=== PATIENT | female | born 1995 | race Two or more races ===

== ENCOUNTER 2018-03-17 09:12 | Inpatient (IN) | payer OTHER ==
[2018-03-17 12:14] LABS: BASO % 0.3 % (0-2.0); EOS % 0.8 % (0-4.5); HEMOGLOBIN 11.3 GM/dL (10.7-15.3); LYMPH % 12.8 % (8-40); MCH 27.9 pg (25.7-33.7); MCHC 34.2 g/dl (32.0-36.0); MEAN CELL VOLUME 81.6 fl (80-96); MEAN PLT VOLUME 10.4 fl (7.5-11.1); MONO % 5.2 % (3.8-10.2); NEUT % 80.9 % (42.8-82.8); PLATELET COUNT 217 K/MM3 (134-434); RBC 4.04 M/mm3 (3.60-5.2); RDW 14.8 % (11.6-15.6); WHITE BLOOD COUNT 9.1 K/mm3 (4.0-10.0)
[2018-03-17 12:22] VITALS: BMI 24.7
[2018-03-17] MEDS ORDERED: DINOPROSTONE 10 MG VAGINAL SUPPOSITORY VG ONE (12:30)
[2018-03-17 12:32] LABS: ANION GAP 7 MMOL/L (8-16); BLOOD UREA NITROGEN 9 mg/dL (7-18); CALCIUM 8.7 mg/dL (8.5-10.1); CHLORIDE 103 mmol/L (98-107); CO2 26 mmol/L (21-32); CREATININE 0.6 mg/dL (0.55-1.3); GLUCOSE,RANDOM 71 mg/dL (74-106); POTASSIUM 4.4 mmol/L (3.5-5.1); SODIUM 136 mmol/L (136-145)
[2018-03-17] MEDS ORDERED: DEXTROSE 5%-LACTATED RINGERS 1,000 ML IV SCH ×2 (13:00→17:30)
[2018-03-17 13:33] LABS: INR 0.9 (0.83-1.09); PROTHROMBIN TIME (PATIENT) 10.6 SEC (9.7-13.0)
[2018-03-17 13:36] LABS: ACTIVATED PTT 22.3 SECONDS (25.2-36.5)
[2018-03-17] MEDS ORDERED: TUBERCULIN PPD 5 TU/0.1ML SYRINGE (IN PATIENT USE ONLY) ID ONE (15:00)
--- NOTE | 2018-03-17 15:31 | PN ---
Progress Note (short form) - Note Progress Note: cx 1 cm 70 vx -3 mi, fhr cat 1, irregular contraction, not felt by patient, cervidil risks discussed agreed cervidil inserted
--- NOTE | 2018-03-17 17:16 | HP ---
Past Medical History - Primary Care Physician PCP:: Dewayne Quiles - Admission Chief Complaint: pregnacy 39.2 weeks by date, 38.4 weeksby sono , SGA, for cervidil induction History of Present Illness: 22 yo f edc 03/22/16 by date wihhx of symmetrical IUGR , EFW at 7th percentile , admitted for cervidil induction , cx 1 cm, 70 vx -3 mi, fhr cat 1, irregular contraction , not felt by patient, cervidil risks discussed History Source: Patient Limitations to Obtaining History: No Limitations - Past Medical History ...: 1 ...Para: 0 ...Term: 0 ...: 0 ...Spon : 0 ...Induced : 0 ...Multiple Gestation: 0 ...LMP: 06/15/17 ... Weeks Gestation by Dates: 39.2 ...EDC by Dates: 03/22/18 ...EDC by Sono: 03/27/18 - Past Surgical History Hx Myomectomy: No Hx Transabdominal Cerclage: No - Smoking History Smoking history: Never smoked Have you smoked in the past 12 months: No - Alcohol/Substance Use Hx Alcohol Use: No - Social History Usual Living Arrangement: Yes: With Spouse History of Recent Travel: No Home Medications - Allergies Allergies/Adverse Reactions: Allergies Allergy/AdvReac Type Severity Reaction Status Date / Time No Known Allergies Allergy Verified 03/17/18 09:38 - Home Medications Home Medications: Ambulatory Orders Ferrous Sulfate [Iron] 325 mg PO DAILY 03/17/18 Pnv No.95/Ferrous Fum/Folic AC [ Formula] 1 each PO DAILY 03/17/18 Review of Systems - Review of Systems Constitutional: reports: No Symptoms Eyes: reports: No Symptoms HENT: reports: No Symptoms Neck: reports: No Symptoms Cardiovascular: reports: No Symptoms Gastrointestinal: reports: No Symptoms Genitourinary: reports: No Symptoms Breasts: reports: No Symptoms Reported Musculoskeletal: reports: No Symptoms Integumentary: reports: No Symptoms Neurological: reports: No Symptoms Endocrine: reports: No Symptoms Hematology/Lymphatic: reports: No Symptoms Psychiatric: reports: No Symptoms Physical Exam - Maternity Vital Signs: Vital Signs Temperature 98.5 F 03/17/18 17:00 Pulse Rate 87 03/17/18 17:00 Respiratory Rate 20 03/17/18 17:00 Blood Pressure 130/77 03/17/18 17:00 O2 Sat by Pulse Oximetry (%) Constitutional: Yes: Well Nourished, No Distress, Calm Eyes: Yes: WNL, Conjunctiva Clear, EOM Intact HENT: Yes: WNL, Atraumatic, Normocephalic Neck: Yes: WNL, Supple, Trachea Midline Cardiovascular: Yes: WNL, Regular Rate and Rhythm Breast(s): Yes: WNL - Abdominal Exam/OB Number of Fetuses: Single Presentation: Vertex Regularity: Irregular Intensity: Unaware Monitor Mode: External Heart Rate Location: [facility] Category: I Accelerations: Uniform - Vaginal Exam/OB Vaginal Bleediing: No Speculum Exam: No Dilatation (cm): 1cm Effacement (%): 70 Amniotic Membrane Status: Intact Presentation: Vertex/Position Station: -3 - Physical Exam Musculoskeletal: Yes: WNL Extremities: Yes: WNL Edema: Yes Edema: LLE: Trace, RLE: Trace Deep Tendon Reflex Grade: Normal +2 ...Motor Strength: WNL Psychiatric: Yes: WNL - Labs Lab Results: CBC, BMP 03/17/18 11:50 03/17/18 11:50 Hemorrhage Risk Assessment - Risk Factors Medium Risk Factors: Yes: None High Risk Factors: Yes: None Risk Score: 0 Risk Level: Low Risk Problem List - Problems (1) with 39 completed weeks gestation Code(s): Z3A.39 - 39 WEEKS GESTATION OF Assessment/Plan admit for cervidil induction, rba discussed
[2018-03-17] MEDS ORDERED: PROMETHAZINE HCL 25 MG/1 ML VIAL IVPUSH ONE (17:22)
[2018-03-17] MEDS ORDERED: BUTORPHANOL TARTRATE 1 MG/ML VIAL IVPUSH PRN (17:22)
[2018-03-18] MEDS ORDERED: PROMETHAZINE HCL 25 MG/1 ML VIAL ONE (00:29)
[2018-03-18] MEDS ORDERED: BUTORPHANOL TARTRATE 1 MG/ML VIAL ONE ×2 (00:29)
[2018-03-18] MEDS ORDERED: FENTANYL/BUPIVACAINE/NS/PF - PCEA - 50 ML DISP.SYRIN EP ONE (03:46)
[2018-03-18] MEDS ORDERED: LIDO 2%/EPI 1:200000 PRESRVFRE (20 ML SDVIAL) ONE ×3 (03:47→07:05)
[2018-03-18] MEDS ORDERED: NALOXONE HCL 0.4 MG/ML VIAL IVPUSH PRN (04:13)
[2018-03-18] MEDS ORDERED: FENTANYL/BUPIVACAINE/NS/PF - PCEA - 50 ML DISP.SYRIN EP SCH (04:15)
[2018-03-18] MEDS ORDERED: ELECTROLYTE-148 SOLN 500 ML IV ONE (04:41)
[2018-03-18] MEDS ORDERED: OXYTOCIN 20 UNITS in 0.9% NS 20 UNIT/1,000 ML INFUS.BAG IV ONE ×2 (05:37→08:55)
[2018-03-18] MEDS ORDERED: KETOROLAC TROMETHAMINE 30 MG/1 ML VIAL ONE (07:17)
[2018-03-18] MEDS ORDERED: morphine SULFATE/Preservative Free 0.5 MG/ML (1cc Syringe) ONE ×4 (07:18)
[2018-03-18] MEDS ORDERED: ePHEDrine SULFATE 50 MG/1 ML AMPULE ONE (07:24)
[2018-03-18] MEDS ORDERED: METHYLERGONOVINE MALEATE 0.2 MG/1 ML AMP IM PRN (07:59)
--- NOTE | 2018-03-18 08:03 | OP ---
Operative Note - Note: Operative Date: 03/18/18 Pre-Operative Diagnosis: IUGR / Non reassuring heart rate Operation: Primary Low transverse Findings: SGA / Nuchal cord x 1 Post-Operative Diagnosis: Same as Pre-op Surgeon: Katalina Barton Brake Lining Maker: Peggy Hwang Anesthesia: Epidural Specimens Removed: Placenta Estimated Blood Loss (mls): 500
[2018-03-18] MEDS ORDERED: ONDANSETRON 4 MG/2 ML VIAL IVPUSH PRN (08:10)
[2018-03-18] MEDS: OXYTOCIN 20 UNITS in 0.9% NS 20 UNIT/1,000 ML INFUS.BAG IV SCH (09:15)
[2018-03-18] MEDS: PRENATAL VITAMINS W/ FOLIC ACID TABLET (FP) PO SCH (10:57)
[2018-03-18] MEDS: FERROUS SO4 325 MG TABLET (FP) PO SCH ×2 (10:57→23:07)
[2018-03-18] MEDS: IBUPROFEN 800 MG/8 ML IJ IVPB PRN (18:12)
[2018-03-19] MEDS: IBUPROFEN 800 MG/8 ML IJ IVPB PRN (01:40)
[2018-03-19] MEDS: OXYTOCIN 20 UNITS in 0.9% NS 20 UNIT/1,000 ML INFUS.BAG IV SCH ×2 (05:00→08:36)
[2018-03-19 07:25] LABS: BASO % 0.2 % (0-2.0); EOS % 0.6 % (0-4.5); HEMOGLOBIN 8.8 GM/dL (10.7-15.3); LYMPH % 9.1 % (8-40); MCH 26.1 pg (25.7-33.7); MCHC 31.4 g/dl (32.0-36.0); MEAN CELL VOLUME 83.1 fl (80-96); MEAN PLT VOLUME 9.8 fl (7.5-11.1); MONO % 3.8 % (3.8-10.2); NEUT % 86.3 % (42.8-82.8); PLATELET COUNT 154 K/MM3 (134-434); RBC 3.37 M/mm3 (3.60-5.2); RDW 14.8 % (11.6-15.6); WHITE BLOOD COUNT 14.3 K/mm3 (4.0-10.0)
[2018-03-19] MEDS ORDERED: BISACODYL 10 MG SUPP.RECT RC PRN (07:59)
[2018-03-19] MEDS ORDERED: ACETAMINOPHEN 325 MG TABLET (FP) ONE (09:20)
--- NOTE | 2018-03-19 09:29 | PN ---
Post Progress Note - Subjective Subjective: pt c/o pain presently 4/10, before pain meds scale was 9/10 pt is drowsy from pain meds she did not void urine since oseguera is taken out passing flatus minimal Post Day: 1 Type of Delivery: Primary C/S Vital Signs: Vital Signs Temperature 97.8 F 03/19/18 06:00 Pulse Rate 98 H 03/19/18 06:00 Respiratory Rate 18 03/19/18 06:00 Blood Pressure 110/57 L 03/19/18 06:00 O2 Sat by Pulse Oximetry (%) 99 03/18/18 08:50 Breast Exam: Yes: Soft, Other (plans to BF ). No: Engorged Uterus: Yes: Fundus Firm, Fundus below umbilicus, Non-tender Incision: Yes: Dressing dry and intact. No: Redness, Oozing Abdomen/GI: Yes: Abdomen soft (bs active ), Passing flatus, Tolerating PO ( clear fluids ). No: Abdominal Distention, Tender Lochia: Yes: Rubra Lochia, amount: Small Extremities: Yes: Calves non-tender Perineum: Yes: Intact Activity: Other (pt in bed , not oob yet ) - Labs Labs: CBC WBC 14.3 K/mm3 (4.0-10.0) H 03/19/18 06:30 RBC 3.37 M/mm3 (3.60-5.2) L 03/19/18 06:30 Hgb 8.8 GM/dL (10.7-15.3) L 03/19/18 06:30 Hct 28.0 % (32.4-45.2) L D 03/19/18 06:30 MCV 83.1 fl (80-96) 03/19/18 06:30 MCH 26.1 pg (25.7-33.7) 03/19/18 06:30 MCHC 31.4 g/dl (32.0-36.0) L 03/19/18 06:30 RDW 14.8 % (11.6-15.6) 03/19/18 06:30 Plt Count 154 K/MM3 (134-434) D 03/19/18 06:30 MPV 9.8 fl (7.5-11.1) 03/19/18 06:30 Absolute Neuts (auto) 12.3 K/mm3 (1.5-8.0) H 03/19/18 06:30 Neutrophils % 86.3 % (42.8-82.8) H 03/19/18 06:30 Lymphocytes % 9.1 % (8-40) D 03/19/18 06:30 Monocytes % 3.8 % (3.8-10.2) 03/19/18 06:30 Eosinophils % 0.6 % (0-4.5) 03/19/18 06:30 Basophils % 0.2 % (0-2.0) 03/19/18 06:30 Nucleated RBC % 0 % (0-0) 03/19/18 06:30 Other Findings, Remarks: RS cta urine out put 2600 + 800 ml Problem List - Problems (1) delivery due to maternal disorder, delivered, curr hospitaliz Code(s): O82 - ENCOUNTER FOR DELIVERY WITHOUT INDICATION; O99.89 - OTH DISEASES AND CONDITIONS COMPL PREG/CHLDBRTH (2) Encounter for care after hospital delivery Code(s): Z39.2 - ENCOUNTER FOR ROUTINE FOLLOW-UP (3) Anemia Code(s): D64.9 - ANEMIA, UNSPECIFIED Assessment/Plan 22 yrs s/p primary c/section doing well anemia post op is noted stable hemodynamically. Plan encourage deep breathing, ambulation, po fluids advance diet
[2018-03-19] MEDS: IBUPROFEN 600 MG TABLET (FP) PO PRN ×3 (09:33→22:23)
[2018-03-19] MEDS: PRENATAL VITAMINS W/ FOLIC ACID TABLET (FP) PO SCH (09:34)
[2018-03-19] MEDS: FERROUS SO4 325 MG TABLET (FP) PO SCH ×2 (09:34→21:52)
[2018-03-19] MEDS: ACETAMINOPHEN 325 MG TABLET (FP) PO PRN ×3 (09:38→22:24)
[2018-03-19] MEDS ORDERED: DIPHTH,PERTUSS(ACELL),TET 0.5 ML DISP.SYRIN IM ONE (10:00)
--- NOTE | 2018-03-19 19:34 | PN ---
Progress Note (short form) - Note Progress Note: Anesthesia postop note S/P under spinal anesthesia. Pat seen and examined. VSS. No apparent post anesthesia complications. Signed off.
[2018-03-20] MEDS: ACETAMINOPHEN 325 MG TABLET (FP) PO PRN ×2 (09:01→20:20)
[2018-03-20] MEDS: IBUPROFEN 600 MG TABLET (FP) PO PRN ×2 (09:01→20:21)
[2018-03-20] MEDS: PRENATAL VITAMINS W/ FOLIC ACID TABLET (FP) PO SCH (09:01)
[2018-03-20] MEDS: SIMETHICONE 80 MG TAB.CHEW (FP) PO PRN ×2 (09:01→20:20)
[2018-03-20] MEDS: FERROUS SO4 325 MG TABLET (FP) PO SCH ×2 (09:01→21:23)
--- NOTE | 2018-03-20 09:14 | PN ---
Post Progress Note - Subjective Subjective: No events o/n. Tolerating po. Pain controlled with meds. +flatus Post Day: 22 Type of Delivery: Primary C/S Vital Signs: Vital Signs Temperature 98.8 F 03/19/18 21:00 Pulse Rate 96 H 03/19/18 21:00 Respiratory Rate 18 03/19/18 21:00 Blood Pressure 121/68 03/19/18 21:00 O2 Sat by Pulse Oximetry (%) 99 03/18/18 08:50 Uterus: Yes: Fundus below umbilicus Incision: Yes: Dressing dry and intact Abdomen/GI: Yes: Abdomen soft Lochia: Yes: Rubra Lochia, amount: Small Extremities: Yes: Calves non-tender Perineum: Yes: Intact - Labs Labs: CBC WBC 14.3 K/mm3 (4.0-10.0) H 03/19/18 06:30 RBC 3.37 M/mm3 (3.60-5.2) L 03/19/18 06:30 Hgb 8.8 GM/dL (10.7-15.3) L 03/19/18 06:30 Hct 28.0 % (32.4-45.2) L D 03/19/18 06:30 MCV 83.1 fl (80-96) 03/19/18 06:30 MCH 26.1 pg (25.7-33.7) 03/19/18 06:30 MCHC 31.4 g/dl (32.0-36.0) L 03/19/18 06:30 RDW 14.8 % (11.6-15.6) 03/19/18 06:30 Plt Count 154 K/MM3 (134-434) D 03/19/18 06:30 MPV 9.8 fl (7.5-11.1) 03/19/18 06:30 Absolute Neuts (auto) 12.3 K/mm3 (1.5-8.0) H 03/19/18 06:30 Neutrophils % 86.3 % (42.8-82.8) H 03/19/18 06:30 Lymphocytes % 9.1 % (8-40) D 03/19/18 06:30 Monocytes % 3.8 % (3.8-10.2) 03/19/18 06:30 Eosinophils % 0.6 % (0-4.5) 03/19/18 06:30 Basophils % 0.2 % (0-2.0) 03/19/18 06:30 Nucleated RBC % 0 % (0-0) 03/19/18 06:30 Assessment/Plan 22yo s/p PLTCS, POD#2 Routine care OOB, ambulate Labs reviewed Anticipate d/c to home by POD#4 Ozzie Goddard MD
[2018-03-20] MEDS ORDERED: IBUPROFEN 100 MG/5 ML UNIT DOSE CUPS PO PRN (09:30)
[2018-03-21 06:11] LABS: BASO % 0.3 % (0-2.0); EOS % 1.6 % (0-4.5); HEMATOCRIT 29.2 % (32.4-45.2); HEMOGLOBIN 9.3 GM/dL (10.7-15.3); LYMPH % 11.7 % (8-40); MCH 26.3 pg (25.7-33.7); MCHC 31.8 g/dl (32.0-36.0); MEAN CELL VOLUME 82.6 fl (80-96); MEAN PLT VOLUME 8.4 fl (7.5-11.1); MONO % 4.4 % (3.8-10.2); PLATELET COUNT 213 K/MM3 (134-434); RBC 3.53 M/mm3 (3.60-5.2); WHITE BLOOD COUNT 11.6 K/mm3 (4.0-10.0)
--- NOTE | 2018-03-21 08:35 | DS ---
Physical Exam-PIGS FEET CLEANER Vital Signs: Vital Signs Temperature 99.0 F 03/20/18 20:28 Pulse Rate 110 H 03/20/18 20:28 Respiratory Rate 20 03/20/18 20:28 Blood Pressure 117/70 03/20/18 20:28 O2 Sat by Pulse Oximetry (%) 99 03/18/18 08:50 Constitutional: Yes: Well Nourished, No Distress, Calm Eyes: Yes: WNL, Conjunctiva Clear, EOM Intact HENT: Yes: WNL, Atraumatic, Normocephalic Neck: Yes: WNL, Supple, Trachea Midline Cardiovascular: Yes: WNL, Regular Rate and Rhythm Respiratory: Yes: WNL, Regular, CTA Bilaterally Gastrointestinal: Yes: WNL ...Rectal Exam: Yes: WNL Renal/: Yes: WNL ....Post : Yes: Uterus firm, Uterus non-tender, Slight lochia rubra Breast(s): Yes: WNL Musculoskeletal: Yes: WNL Extremities: Yes: WNL Edema: No Integumentary: Yes: WNL Wound/Incision: Yes: Clean/Dry, Well Approximated, Union Intact Neurological: Yes: WNL, Alert, Oriented ...Motor Strength: WNL Psychiatric: Yes: WNL, Alert, Oriented Labs: CBC, BMP 03/21/18 05:56 03/17/18 11:50 Delivery - Delivery Section: Primary, Low Flap Transverse Type of Anesthesia: Epidural EBL (cc): 500 Delivery, Single - Stages of Labor Date 1st Stage Initiatied: 03/17/18 Time 1st Stage Initiated: 10:00 Date of Delivery: 03/18/18 Time of Delivery: 07:27 Time Placenta Delivered: 07:29 Placenta: Yes: Expressed - Condition of Infant Delineator/Pneumatic Tester Mechanic Present: Yes Name: Brayan Franz Gender: Male Weight: 5 lb 13 oz Total Hours ROM (Hrs/Mins): 4 hours 29 minutes - 1 Minute Total Score: 9 5 Minutes Total Score: 9 - Feeding Plan Initial Plan: Elected not to breastfeed exclusively throughout hospitalization Discharge Summary Reason For Visit: INDUCTION OF LABOR Current Active Problems Anemia (Acute) delivery due to maternal disorder, delivered, curr hospitaliz (Acute) Encounter for care after hospital delivery (Acute) IUGR (intrauterine growth restriction) (Acute) with 39 completed weeks gestation (Acute) Procedures: Principal: primary LST c/s Hospital Course: no complication Condition: Good - Instructions Diet, Activity, Other Instructions: regular diet, no intercourse, follow up [facility] care 1 week, if fever, pain, heavy bleeding call MD Disposition: HOME - Home Medications Comprehensive Discharge Medication List: Ambulatory Orders Ferrous Sulfate [Iron] 325 mg PO DAILY 03/17/18 Pnv No.95/Ferrous Fum/Folic AC [ Formula] 1 each PO DAILY 03/17/18 Ibuprofen [Motrin -] 600 mg PO TID #90 tablet 03/21/18
[2018-03-21] MEDS: PRENATAL VITAMINS W/ FOLIC ACID TABLET (FP) PO SCH ×2 (09:32→09:34)
[2018-03-21] MEDS: FERROUS SO4 325 MG TABLET (FP) PO SCH (09:32)
[2018-03-21 10:15] VITALS: BP 124/73; PULSE 103; TEMP 99.4
--- NOTE | 2018-03-27 19:01 | PATH ---
Surgical Pathology Report Patient Name: SHELL VENTURA [facility]. Rec. #: [id number] /Age/Gender: 1995 (Age: 22) / F Account: [id number] Location: [facility] OBS/HALL COORDINATOR Taken: 03/18/2018 Received: 03/19/2018 Reported: 03/27/2018 Physicians: Elvi Brown M.D. Specimen(s) Received PLACENTA Clinical History , 38.4 weeks gestation, IUGR, nonreassuring heart rate Final Diagnosis PLACENTA: THIRD TRIMESTER PLACENTA. TRIVASCULAR CORD. MEMBRANES WITH NO DIAGNOSTIC ABNORMALITIES. Electronically Signed Deepti Coles M.D. Gross Description The specimen is received fresh labeled placenta and is a 404 gram, 17.5 x 15.5 x 2.2 cm. placenta with attached membranes and umbilical cord. The attached membranes are liu, translucent with focal opacities and insert marginally. The umbilical cord measures 24cm in length and averages 1cm. in diameter. The cord inserts eccentrically, 5.5 cm. to the nearest margin. No true knots or strictures are identified. Cut surface of the umbilical cord reveals 3 vessels. The surface is posey-blue with minimal fibrin deposition and appropriate caliber vessels. The maternal surface is red-brown with focal defects. Sectioning reveals no lesions. Skip Pit Worker sections are submitted in three cassettes as follows: 1- membrane rolls and umbilical cord; 2-3- full thickness sections of placenta. /03/25/2018 saudi03/25/2018
== END 2018-03-21 12:00 | disposition home or self-care (01) | DRG 540 ==
LOC: JDEL 09:12 → JLDR 11:15 → J3W 03-18 09:50
PROVIDERS: ADMIT Obstetrics & Gynecology; ATTEND Obstetrics & Gynecology
PROC: 3E0P7VZ Introduction of Hormone into Female Reproductive, Via Natural or Artificial Opening (ICD-10-PCS; 2018-03-17)
PROC: 10D00Z1 Extraction of Products of Conception, Low, Open Approach (ICD-10-PCS; principal; 2018-03-18)
DX: O36.5930 Maternal care for other known or suspected poor fetal growth, third trimester, not applicable or unspecified (principal); O76 Abnormality in fetal heart rate and rhythm complicating labor and delivery; O69.81X0 Labor and delivery complicated by cord around neck, without compression, not applicable or unspecified; O99.02 Anemia complicating childbirth; D64.9 Anemia, unspecified; Z3A.39 39 weeks gestation of pregnancy; Z37.0 Single live birth
CPT/HCPCS: 36415; 59025; 80048; 85025; 85610; 85730; 86593; 86850; 86900; 86901; 88307-TC; 90715